=== PATIENT | male | born 1990 | race Caucasian/White ===

== ENCOUNTER 2018-04-08 04:52 | Emergency (ER) | payer MEDICAID, OTHER ==
[2018-04-08 05:01] VITALS: BP 136/84
--- NOTE | 2018-04-08 05:07 | ED Physician Documentation ---
PD HPI HEENT - Stated complaint Stated Complaint: RT EAR PAIN - Chief complaint Chief Complaint: Heent - History obtained from History obtained from: Patient - History of Present Illness Timing - onset: How many weeks ago (2) Timing - duration: Weeks (2) Timing - details: Gradual onset, Still present (improved moderately but not completely while taking Augmentin for 10 days. However symptoms back again promptly over 1-2 days. Pain just right ear.) Location: Right ear Worsens: Swalllowing Associated symptoms: Fever, Congestion Recently seen: Clinic (Dx with ear infection and has been on augmentin for 9 days. No significant change in symptoms, and then worse the past couple days.) Review of Systems Constitutional: denies: Fever Ears: reports: Loss of hearing, Ear pain. denies: Tinnitus/ringing Nose: reports: Congestion. denies: Rhinorrhea / runny nose, Sinus pressure / pain Throat: denies: Dental pain / toothache PD PAST MEDICAL HISTORY - Past Medical History Cardiovascular: None Respiratory: None Neuro: None Endocrine/Autoimmune: None - Past Surgical History Past Surgical History: No - Present Medications Home Medications: Ambulatory Orders Medication Instructions Recorded Confirmed Azithromycin [Zithromax] 0 mg PO DAILY #4 tablet 04/08/18 Dexamethasone [Decadron] 4 mg PO DAILY #5 tablet 04/08/18 Neomycin/Polymyx/Hc Otic Drops 4 drops OT TID #1 bottle 04/08/18 [Cortisporin Ear Susp] Sertraline [Zoloft] 0 mg PO DAILY 04/08/18 04/08/18 hydrOXYzine HCl [Hydroxyzine HCl] 25 mg PO 04/08/18 - Allergies Allergies/Adverse Reactions: Allergies Allergy/AdvReac Type Severity Reaction Status Date / Time zolpidem [From Ambien] AdvReac Hallucinati Verified 04/08/18 04:59 ons PD ED PE NORMAL - Vitals Vital signs reviewed: Yes - General General: Alert and oriented X 3, No acute distress, Well developed/nourished - HEENT HEENT: Pharynx benign. No: Ears normal (left is nromal. RIght with redness and inflammation of the eardrum. No bleeding nor perforation. ) - Neck Neck: Supple, no meningeal sign, Other (some anterior adenopathy on the right. ) - Cardiac Cardiac: RRR, No murmur - Respiratory Respiratory: Clear bilaterally - Abdomen Abdomen: Soft, Non tender Results - Vitals Vitals: Vital Signs - 24 hr 04/08/18 04:55 Temperature 36.2 C L Heart Rate 66 Blood Pressure 136/84 H O2 Saturation 98 Oxygen O2 Source Room air Departure - Departure Disposition: 01 Home, Self Care Clinical Impression: Otitis media, right Qualifiers: Otitis media type: suppurative Chronicity: acute Recurrence: not specified as recurrent Spontaneous tympanic membrane rupture: without spontaneous rupture Qualified Code(s): H66.001 - Acute suppurative otitis media without spontaneous rupture of ear drum, right ear Condition: Stable Record reviewed to determine appropriate education?: Yes Instructions: ED Otitis Media Acute Adult Follow-Up: ROBBIE NGUYỄN [Primary Care Provider] - Prescriptions: Azithromycin [Zithromax] 0 mg PO DAILY #4 tablet Dexamethasone [Decadron] 4 mg PO DAILY #5 tablet Neomycin/Polymyx/Hc Otic Drops [Cortisporin Ear Susp] 4 drops OT TID #1 bottle Comments: Since the other antibiotic did not clear the infection and now it is back pretty well, we will try a different category antibiotic. Take Zithromax daily for the next 4 days for a 5-day total course. Decadron steroid anti-inflammatory daily for 5 more days. Drink lots of fluids. There is some redness of the ear canal as well so we will add some antibiotic eardrops to it as well. Use is as directed over the next week. Recheck if not better over the next several days to week. Discharge Date/Time: 04/08/18 05:30
[2018-04-08] MEDS ORDERED: ACETAMINOPHEN 325 MG TABLET PO STA (05:19)
[2018-04-08] MEDS ORDERED: DEXAMETHASONE 10 MG/ML VIAL PO STA (05:19)
[2018-04-08] MEDS ORDERED: AZITHROMYCIN 250 MG TABLET PO STA (05:19)
[2018-04-08] MEDS ORDERED: CHERRY SYRUP 10 ML UDC PO ONE (05:27)
== END 2018-04-08 05:30 | disposition home or self-care (01) ==
LOC: ED 04:52
DX: H66.001 Acute suppurative otitis media without spontaneous rupture of ear drum, right ear (principal)
CPT/HCPCS: 99283; A9270

== ENCOUNTER 2018-05-11 01:25 | Emergency (ER) | payer MEDICAID ==
[2018-05-11 01:32] VITALS: BP 129/81
--- NOTE | 2018-05-11 01:46 | ED Physician Documentation ---
History of Present Illness - Stated complaint Stated Complaint: R EAR PX - Chief complaint Chief Complaint: Heent - History obtained from History obtained from: Patient - History of Present Illness Timing: Today Pain level max: 5 Pain level now: 5 - Additonal information Additional information: 27-year-old male states that he woke up tonight with right ear pain. Rates as a 5 out of 10. States it feels sharp. States that he felt like there was drainage out of the ear. Has not been sick recently. No fevers. No rhinorrhea or congestion. Does not use Q-tips.Nothing makes it better or worse Review of Systems Constitutional: denies: Fever, Chills Throat: denies: Sore throat Respiratory: denies: Cough PD PAST MEDICAL HISTORY - Past Medical History Cardiovascular: None Respiratory: None Neuro: None Endocrine/Autoimmune: None - Past Surgical History Past Surgical History: No - Present Medications Home Medications: Ambulatory Orders Medication Instructions Recorded Confirmed hydrOXYzine HCl [Hydroxyzine HCl] 25 mg PO DAILY 04/08/18 Neomycin/Polymyx/Hc Otic Drops 4 drops OT TID #1 bottle 05/11/18 [Cortisporin Ear Susp] - Allergies Allergies/Adverse Reactions: Allergies Allergy/AdvReac Type Severity Reaction Status Date / Time zolpidem [From Ambien] AdvReac Hallucinati Verified 05/11/18 01:34 ons - Social History Does the pt smoke?: No Smoking Status: Never smoker Does the pt drink ETOH?: No Does the pt have substance abuse?: No PD ED PE NORMAL - Vitals Vital signs reviewed: Yes - General General: Alert and oriented X 3, No acute distress - HEENT HEENT: Moist mucous membranes, Pharynx benign, Other (Left ear is normal. Right ear canal is swollen, mildly erythematous. Nearly swollen shut. No drainage. No lymphadenopathy. Unable to visualize TM) - Neck Neck: Supple, no meningeal sign, No adenopathy - Cardiac Cardiac: RRR - Respiratory Respiratory: No respiratory distress, Clear bilaterally - Derm Derm: Warm and dry - Neuro Neuro: Alert and oriented X 3 Results - Vitals Vitals: Vital Signs - 24 hr 05/11/18 01:29 Temperature 36.2 C L Heart Rate 77 Respiratory 18 Rate Blood Pressure 129/81 H O2 Saturation 98 Oxygen O2 Source Room air PD MEDICAL DECISION MAKING - ED course Complexity details: considered differential, d/w patient ED course: Patient with a right acute otitis externa. Will place on Cortisporin otic and follow-up with his doctor. Patient is well-appearing, nontoxic. Afebrile. Patient counseled regarding signs and symptoms for which I believe and urgent re-evaluation would be necessary. Patient with good understanding of and agreement to plan and is comfortable going home at this time This document was made in part using voice recognition software. While efforts are made to proofread this document, sound alike and grammatical errors may occur. No mastoid tenderness Departure - Departure Disposition: 01 Home, Self Care Clinical Impression: Otitis externa of right ear Qualifiers: Otitis externa type: unspecified type Chronicity: acute Qualified Code(s): H60.501 - Unspecified acute noninfective otitis externa, right ear Condition: Good Instructions: ED Otitis Externa Follow-Up: ROBBIE NGUYỄN [Primary Care Provider] - Within 1 week Prescriptions: Neomycin/Polymyx/Hc Otic Drops [Cortisporin Ear Susp] 4 drops OT TID #1 bottle Comments: Use the antibiotic drops as prescribed. Return if you worsen. Follow-up with your doctor for further care. Discharge Date/Time: 05/11/18 01:45
== END 2018-05-11 01:45 | disposition home or self-care (01) ==
LOC: ED 01:25
DX: H60.501 Unspecified acute noninfective otitis externa, right ear (principal)
CPT/HCPCS: 99283

== ENCOUNTER 2020-01-23 12:57 | Emergency (ER) | payer MEDICAID ==
[2020-01-23 13:05] VITALS: BP 135/78
[2020-01-23] MEDS ORDERED: PROPARACAINE 0.5% OPHTH DROPS 15 ML RIGHTEYE STA (13:07)
--- NOTE | 2020-01-23 13:16 | ED Physician Documentation ---
PD HPI HEENT - Stated complaint Stated Complaint: FB RT EYE - Chief complaint Chief Complaint: Heent - History obtained from History obtained from: Patient - Additional information Additional information: Had gradual onset redness and irritation of the right eye since yesterday. Presumed foreign body since he was doing yard work but no sudden onset or obvious foreign body. Vision is unaffected. Does not wear contacts. Review of Systems Constitutional: reports: Reviewed and negative Eyes: reports: Reviewed and negative Ears: reports: Reviewed and negative Nose: reports: Reviewed and negative PD PAST MEDICAL HISTORY - Past Medical History Past Medical History: Yes Cardiovascular: None Respiratory: None Neuro: None Endocrine/Autoimmune: None - Past Surgical History Past Surgical History: No - Present Medications Home Medications: Ambulatory Orders Medication Instructions Recorded Confirmed hydrOXYzine HCL [Hydroxyzine HCl] 25 mg PO DAILY 04/08/18 Neomycin/Polymyx/Hc Otic Drops 4 drops OT TID #1 bottle 05/11/18 [Cortisporin Ear Susp] Erythromycin Base [Erythromycin 1 appful OP 5XD 7 Days #1 oint...g. 01/23/20 Ophthalmic Ointment] - Allergies Allergies/Adverse Reactions: Allergies Allergy/AdvReac Type Severity Reaction Status Date / Time zolpidem [From Ambien] AdvReac Hallucinati Verified 05/11/18 01:34 ons - Social History Does the pt smoke?: No Smoking Status: Never smoker Does the pt drink ETOH?: No Does the pt have substance abuse?: No PD ED PE NORMAL - Vitals Vital signs reviewed: Yes - General General: Alert and oriented X 3, No acute distress - HEENT HEENT: Other (He has conjunctivitis of the right eye, globes are soft, no fluorescein uptake.) - Neck Neck: Supple, no meningeal sign, No bony TTP - Derm Derm: No rash - Psych Psych: Normal mood, Normal affect Results - Vitals Vitals: Vital Signs - 24 hr 01/23/20 13:01 Temperature 36.3 C L Heart Rate 81 Respiratory 15 Rate Blood Pressure 135/78 H O2 Saturation 99 Oxygen O2 Source Room air PD MEDICAL DECISION MAKING - ED course ED course: There is no evidence of foreign body, corroborated by gradual onset. Departure - Departure Disposition: 01 Home, Self Care Clinical Impression: Conjunctivitis, right eye Qualifiers: Conjunctivitis type: acute Acute conjunctivitis type: unspecified Qualified Code(s): H10.31 - Unspecified acute conjunctivitis, right eye Condition: Good Record reviewed to determine appropriate education?: Yes Instructions: ED Conjunctivitis Nonspecific Follow-Up: Jaun Hopper MD [Provider Admit Priv/Credential] - Prescriptions: Erythromycin Base [Erythromycin Ophthalmic Ointment] 1 appful OP 5XD 7 Days #1 oint...g. Comments: Follow-up with the front office specialist listed on this form early next week if not better, return if worsening or if your vision gets worse.
== END 2020-01-23 13:35 | disposition home or self-care (01) ==
LOC: ED 12:57
DX: H10.31 Unspecified acute conjunctivitis, right eye (principal)
CPT/HCPCS: 99282; 99284; J3490

== ENCOUNTER 2020-05-24 19:14 | Outpatient (CLI) | payer MEDICAID | END 2020-05-24 19:15 | disposition home or self-care (01) | LOC: COV 19:14 | PROVIDERS: ATTEND Family Medicine | DX: R50.9 Fever, unspecified (principal); R05 Cough; R53.83 Other fatigue; R07.0 Pain in throat; R09.81 Nasal congestion; J34.89 Other specified disorders of nose and nasal sinuses; Z20.822 Contact with and (suspected) exposure to COVID-19 ==

== ENCOUNTER 2021-11-11 09:06 | Emergency (ER) | payer MEDICAID, OTHER ==
[2021-11-11 09:17] VITALS: BP 130/71
--- NOTE | 2021-11-11 09:21 | ED Physician Documentation ---
PD HPI HEENT - Stated complaint Stated Complaint: CUT IN TONGUE - Chief complaint Chief Complaint: Laceration - History obtained from History obtained from: Patient - History of Present Illness Timing - onset: Last night Timing - details: Abrupt onset Location: Mouth (he has had retainer upper front hard palatte behind front teeth for many years, like 15 years. It popped and broke from one side last night and has the point of it pointing into tongue, hurting. 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.) Worsens: Other (moving of tongue and closing mouth) Similar symptoms before: Has not had sx before Recently seen: Not recently seen Review of Systems Nose: denies: Rhinorrhea / runny nose, Congestion Throat: denies: Dental pain / toothache, Sore throat PD PAST MEDICAL HISTORY - Past Medical History Cardiovascular: None Respiratory: None Neuro: None Endocrine/Autoimmune: None - Past Surgical History Past Surgical History: No - Present Medications Home Medications: Ambulatory Orders Medication Instructions Recorded Confirmed hydrOXYzine HCL [Hydroxyzine HCl] 25 mg PO DAILY 04/08/18 Neomycin/Polymyx/Hc Otic Drops 4 drops OT TID #1 bottle 05/11/18 [Cortisporin Ear Susp] Erythromycin Base [Erythromycin 1 appful OP 5XD 7 Days #1 oint...g. 01/23/20 Ophthalmic Ointment] - Allergies Allergies/Adverse Reactions: Allergies Allergy/AdvReac Type Severity Reaction Status Date / Time coconut Allergy Edema Verified 11/11/21 09:17 zolpidem [From Ambien] AdvReac Hallucinati Verified 11/11/21 09:17 ons - Social History Does the pt smoke?: No Smoking Status: Never smoker Does the pt drink ETOH?: No Does the pt have substance abuse?: No PD ED PE NORMAL - Vitals Vital signs reviewed: Yes - General General: Alert and oriented X 3, No acute distress, Well developed/nourished - HEENT HEENT: Dentition benign. No: Pharynx benign (there is small braided wire behind upper front teeth, anchored on left side but loose right and the end is pointing down, very sharp. ) - Neck Neck: Supple, no meningeal sign, No adenopathy Results - Vitals Vitals: Vital Signs - 24 hr 11/11/21 09:14 Temperature 36.0 C L Heart Rate 93 Respiratory 16 Rate Blood Pressure 130/71 O2 Saturation 96 Oxygen O2 Source Room air PD MEDICAL DECISION MAKING - ED course Complexity details: considered differential (I pulled on the wire trying to snip with wire cutters so not pointed out, but instead it loosened the left end and the whole of it came out. Patient more comfortable. ), d/w patient Departure - Departure Disposition: 01 Home, Self Care Clinical Impression: Orthodontic device fitting or adjustment Condition: Stable Record reviewed to determine appropriate education?: Yes Comments: I presume he can be without the retainer at this point follow-up with your local dentist in the near future if problems. You could also try looking up orthodontics in the area. Commonly retainers are not kept that long so just being without at this point should be okay. Discharge Date/Time: 11/11/21 09:42
== END 2021-11-11 09:42 | disposition home or self-care (01) ==
LOC: ED 09:06
DX: Z46.4 Encounter for fitting and adjustment of orthodontic device (principal)
CPT/HCPCS: 99281; 99282